=== PATIENT | female | born 1970 | race American Indian/Alaskan Native ===

== ENCOUNTER 2019-05-21 08:42 | Day surgery (SDC) | payer MEDICARE, BC ==
[~2019-05-21] VITALS: Ht 165.1 cm; Wt 101.8 kg
[2019-05-21 08:51] VITALS: BP 156/92
[2019-05-21] MEDS ORDERED: fentaNYL/PF 50MCG/1 ML 2ML syringe ONE (09:17)
[2019-05-21] MEDS ORDERED: MIDAZolam 5mg/5ml vial ONE (09:17)
[2019-05-21] MEDS ORDERED: VENL150C2 PO (09:18)
[2019-05-21] MEDS ORDERED: VENL75CA55 PO (09:18)
[2019-05-21] MEDS ORDERED: DOXE50CA4 PO (09:25)
[2019-05-21] MEDS ORDERED: METH-603 PO (09:26)
== END 2019-05-21 11:50 | disposition home or self-care (01) ==
LOC: GI LAB 08:42
PROVIDERS: ATTEND Internal Medicine Gastroenterology
DX: K92.1 Melena (principal); K64.8 Other hemorrhoids
CPT/HCPCS: 45378; G0500; J2250; J3010; J7040; 99152; 99153; A4620